=== PATIENT | female | born 1965 | race American Indian/Alaskan Native ===

== ENCOUNTER 2020-05-06 09:07 | Day surgery (SDC) | payer OTHER ==
[~2020-05-06 09:07] MED LIST: SODIUM CHLORIDE 0.9% 1000 ML 1,000 ML IV SCH
--- NOTE | 2020-05-06 10:23 | Anesthesia Consultation ---
Anesthesia Consult and Med Hx Date of service: 05/06/20 - Airway Anesthetic Teeth Evaluation: Good ROM Head & Neck: Adequate Mental/Hyoid Distance: Adequate Mallampati Class: Class II Intubation Access Assessment: Probably Good - Pre-Operative Health Status ASA Pre-Surgery Classification: ASA2 Proposed Anesthetic Plan: MAC - Pulmonary Hx Smoking: No Hx Asthma: Yes (last inhaler use yrs ago) Hx Respiratory Symptoms: No - Cardiovascular System Hx Hypertension: No Hx Peripheral Vascular Disease: Yes (venous insufficiency) - Central Nervous System Hx Neuromuscular Disorder: Yes (peripheral neuropathy) CVA: No - Gastrointestinal Hx Gastroesophageal Reflux Disease: Yes - Endocrine Hx Renal Disease: No Hx Liver Disease: No Hx Insulin Dependent Diabetes: No Hx Non-Insulin Dependent Diabetes: No Hx Thyroid Disease: No - Hematic Hx Anemia: Yes (iron and B12 def) - Other Systems Hx Obesity: Yes (BMI 35)
--- NOTE | 2020-05-06 10:23 | Anesthesia Day of Surgery ---
Anesthesia Day of Surgery - Day of Surgery Patient Examined: Yes Patient H&P Reviewed: Yes Patient is NPO: Yes
[2020-05-06] MEDS ORDERED: propofoL 200 MG/20 ML VIAL IV ONE ×2 (11:06→11:39)
--- NOTE | 2020-05-06 11:31 | History and Physical Report ---
HISTORY OF PRESENT ILLNESS: A 54-year-old female with a remote history of gastric bypass in 2002, who has underlying history of vitamin B12 deficiency and iron deficiency, possibly secondary to the gastric bypass, is having colonoscopy done as part of colon polyp screening and also to assess for any additional source of anemia. She has no known allergies. She states she has not had any coronary artery disease or any CVAs in the past. ALLERGIES: No known allergies. SOCIAL HISTORY: Denies history of smoking. No family history of cancer. PHYSICAL EXAMINATION: VITAL SIGNS: Otherwise are stable. HEENT: Shows no JVD. LUNGS: Clear to auscultation. CARDIOVASCULAR: Normal. ABDOMEN: Soft. Bowel sounds present. NEUROLOGIC: She is alert and oriented. ASSESSMENT: Anemia, vitamin B12 deficiency, iron deficiency, possibly secondary to gastric bypass, status post gastric bypass. PLAN: To do a colonoscopy for further assessment at [facility] on 05/06/2020. JOB# [id number] DARSHANA/NTS
--- NOTE | 2020-05-06 11:53 | Procedure Note ---
Date of procedure: 05/06/20 Pre-op diagnosis: Anemia/ Colon Polyp Screening Post-op diagnosis: other (No Colon Polyps noted/ Mild Moderate,Left Colon Diverticuli/Mild to Moderate Internal Hemorrhoid) Procedure: Colonoscopy Anesthesia: MAC Surgeon: JOSE FRANCISCO CONTEH Pathology: none Specimen disposition: to lab Condition: stable Disposition: same day (Encourage fiber intake. Resume home medication and follow up in 1 to 2 weeks ([phone]).)
[2020-05-06 12:31] VITALS: BP 147/85
--- NOTE | 2020-05-06 12:33 | Operative Report ---
COLONOSCOPY INDICATIONS: This is a 54-year-old slightly obese -[place] female who has had a gastric bypass done back in 2002. She had a colonoscopy done as part of colon polyp screening and also to assess for anemia, which possibly is because of her gastric bypass and she required vitamin B12 supplements as well as iron supplements. DESCRIPTION OF PROCEDURE: The procedure was done after getting informed consent with MAC anesthesia. Initial rectal exam was unremarkable. Instrument was passed through the rectum onto the cecum, which was identified with ileocecal valve and the appendiceal orifice. Visualization was fair to good. Cecum, ascending colon, transverse colon showed normal mucosa. There was [id number] diverticular disease noted in the left colon and most pronounced in the sigmoid and the rectum also showed mild to moderate internal hemorrhoid. No biopsies were done. There was no bleeding associated with the procedure. No complications associated with the procedure. ASSESSMENT: Colon polyp screening and anemia, [id number] sigmoid diverticula, mild to moderate internal hemorrhoids. The patient will be encouraged to take fiber supplements. Resume home medication. Follow up in the office in 1-2 weeks' time. The procedure was done in the GI lab with assistance of the GI lab team, which included SHANTA, Yola White; Lance rollins and with assistance of Anesthesia. JOB# [id number] DARSHANA/MAKI
--- NOTE | 2020-05-06 14:40 | Post Anesthesia Evaluation ---
- Post Anesthesia Evaluation Patient Participated: Yes Airway Patent: Yes Stable Respiratory Function: Yes Nausea/Vomiting: No Temp > 96.8F: Yes Pain Manageable: Yes Adequeate Hydration: Yes Anesthesia Complications: No
== END 2020-05-06 09:08 | disposition home or self-care (01) ==
LOC: GIO 09:07
DX: D50.9 Iron deficiency anemia, unspecified (principal); K57.30 Diverticulosis of large intestine without perforation or abscess without bleeding; K64.8 Other hemorrhoids; I73.9 Peripheral vascular disease, unspecified; J45.909 Unspecified asthma, uncomplicated; K21.9 Gastro-esophageal reflux disease without esophagitis; E66.9 Obesity, unspecified; Z88.0 Allergy status to penicillin; Z88.2 Allergy status to sulfonamides; Z79.899 Other long term (current) drug therapy; Z88.8 Allergy status to other drugs, medicaments and biological substances; Z68.35 Body mass index [BMI] 35.0-35.9, adult
CPT/HCPCS: 45378; J2704; J7030